=== PATIENT | female | born 1965 | race Caucasian/White ===

== ENCOUNTER 2023-11-01 19:12 | Emergency (ER) | payer OTHER, SELFPAY ==
[2023-11-01 19:16] VITALS: BP 178/78; PULSE 98; RESP 18; TEMP 37.2; O2SAT 98
[2023-11-01 20:00] LABS: Abs Immature Grans 0.02 10^3/uL (0.0-0.06); Absolute Basophil Count 0.04 10^3/uL (0.0-0.2); Absolute Eosinophil Count 0.21 10^3/uL (0.0-0.7); Absolute Lymphocyte Count 2.37 10^3/uL (1.2-3.4); Absolute Monocyte Count 0.38 10^3/uL (0.1-0.8); Basophils % 0.5 %; Eosinophils % 2.6 %; HCT 41.4 % (36.0-46.0); HGB 14.2 g/dL (11.2-15.7); Immature Grans % 0.2 %; Lymphocytes % 29.2 %; MCH 32.3 pg (27.0-33.0); MCHC 34.3 % (32.0-36.0); MCV 94 fL (80-95); MPV 10.8 fL (8.0-11.0); Monocytes % 4.7 %; Neutrophils % 62.8 %; Platelet Count 240 10^3/uL (130-400); RDW-SD 44.7 fL; WBC 8.12 10^3/uL (4.4-10.8)
[2023-11-01 20:13] LABS: ALT 36 U/L (14-59); AST 20 U/L (15-37); Albumin 4.3 g/dL (3.4-5.0); Alkaline Phosphatase 62 U/L (46-116); Anion Gap 12.5 mmol/L (3-11); BUN 12 mg/dL (7-18); Bilirubin, Total 0.5 mg/dL (0.2-1.0); CO2 26.5 mmol/L (21.0-32.0); CREATININE 1.3 mg/dL (0.55-1.02); Calcium 9.1 mg/dL (8.5-10.1); Chloride 101 mmol/L (98-107); Estimated GFR 47.37 (mL/min/1.73m2); Glucose 116 mg/dL (74-106); Potassium 3.9 mmol/L (3.5-5.1); Sodium 140 mmol/L (136-145)
--- NOTE | 2023-11-01 20:22 | ED.GENADUL_ITS ---
Discharge Plan Disposition Patient Disposition: Home Condition: Stable Discharge Details Clinical Impression: Tick bite Primary Care Provider: [facility] Provider: Adrianna Gavin Home Meds and New Rx's Prescriptions: New cefuroxime axetil 500 mg tablet 500 mg PO BID 14 Days Qty: 28 0RF Rx Instructions: Take one tablet twice daily x 14 days No Action amlodipine 5 mg tablet 5 mg PO DAILY duloxetine [Cymbalta] 60 mg capsule,delayed release(DR/EC) 60 mg PO DAILY rosuvastatin [Crestor] 20 mg tablet 20 mg PO DAILY Discharge Instructions Instructions: Tick Bite (ED) Additional Instructions: We will call you with the Tick and Lyme panel results which are a send out and should be resulted in 2-3 days. Take the antibiotic as directed. Elevate your legs and apply ice at least 3 times daily. You may consider wearing compression socks. The D-dimer was negative, CBC was within normal limits. Follow up with primary care provider in 3-5 days. Return to ED sooner if any worsening or concerns. Stand Alone Forms: Work Release Discharge Data Discharge Date/Time-TO BE ENTERED AT DEPARTURE: 11/01/23 21:23 HPI General Mode of arrival: ambulatory . Date/Time Provider Initiated Documentation: 11/01/23 19:36 . Limitations to Documentation: no limitations . Information obtained by: patient, RN notes reviewed and old records reviewed . HPI Narrative: 57-year-old female presents to the ER after having a tick bite on Monday to her right hip which her removed it he did remove it and completely was seen in urgent care on Monday and was given 200 mg of doxycycline. Was told to be seen again if she got a rash. She then noted some tightness around her ankles and rash and swelling to her bilateral ankles and some achiness in her knees. She also is complaining of some lower back pain. She also did have bladder surgery approximately 3 weeks ago. 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 Denies any chest pain. She does report some dyspnea. Related Data Home Medications Medication Instructions Recorded Confirmed amlodipine 5 mg tablet 5 mg PO DAILY 11/01/23 11/01/23 cefuroxime axetil 500 mg tablet 500 mg PO BID tick bite 14 days 11/01/23 #28 tabs duloxetine 60 mg capsule,delayed 60 mg PO DAILY 11/01/23 11/01/23 release (Cymbalta) rosuvastatin 20 mg tablet (Crestor) 20 mg PO DAILY 11/01/23 11/01/23 Previous Rx's Medication Instructions Recorded cefuroxime axetil 500 mg tablet 500 mg PO BID tick bite 14 days 11/01/23 #28 tabs Allergies Allergy/AdvReac Type Severity Reaction Status Date / Time egg Allergy Intermediate rash Unverified 11/01/23 19:21 yellow dye Allergy Mild Hives Unverified 11/01/23 19:21 General Stated Complaint: RashLesion MOOK: 4 Review of Systems All systems reviewed & are unremarkable except as noted in HPI and below Constitutional Constitutional: Reports as per HPI, Reports body ache(s) and Denies snoring Cardiovascular Cardiovascular: Denies chest pain and Reports dyspnea Respiratory Respiratory: Reports dyspnea, Denies snoring, Denies stridor and Denies wheezing Musculoskeletal Musculoskeletal: Reports arthralgias (knees) Comments: Generalized lower extremity swelling Integumentary/Breasts Skin/Breast: Reports rash Allergic/Immunologic Allergic/Immunologic: Denies wheezing Exam Narrative Exam Narrative: Constitutional: Alert and oriented x3. Appears stated age. Normal body habitus. Head: Normocephalic, no trauma. Eyes: Pupils PERRL, Red reflex noted, EOM's intact. Eyelids symmetrical without lesions, discharge, or swelling. ENT: Bilateral TM's WNL, External ear normal to inspection, no mastoid TTP, swelling, or erythema, Nasal turbinates WNL, no nasal discharge. Normal dentition, Posterior pharynx WNL, no exudate. Chest: RRR, Normal S1, S2, distal pulses intact. Resp: Lungs clear to auscultation bilaterally, no wheezes, rales, or rhonchi. Abdomen: Soft, non-distended, Normoactive bowel sounds all 4 quads. Musculoskeletal: Normal gait, Moves all 4 extremities without difficulty. Reports lower back pain did have bladder surgery recently. Skin: Tick bite noted to right hip, some lower extremity rash noted bilaterally with some surrounding edema. Neurologic: Cranial nerves II-XII intact. Alert and oriented x 3. Motor: No deficits noted. Sensory: Intact bilaterally all 4 extremities. Hematologic/Lymphatic: No ecchymosis, no lymphadenopathy. Skin General skin exam: other (Generalized edema noted to bilateral lower extremities ) Lesions: lesion noted (Right hip tick bite) Rashes: rashes noted (Bilateral lower extremities near ankles erythemic nonraised no urticaria ) Course Vital Signs Vital signs: Vital Signs Temperature 37.2 C 11/01/23 19:16 Pulse 98 H 11/01/23 19:16 Respiratory Rate 18 11/01/23 19:16 Blood Pressure 178/78 H 11/01/23 19:16 Pulse Oximetry 98 11/01/23 19:16 Temperature 37.2 C 11/01/23 19:16 Temperature Source Skin 11/01/23 19:16 Pulse 98 H 11/01/23 19:16 Respiratory Rate 18 11/01/23 19:16 Respiratory Effort Normal, Non-Labored 11/01/23 19:23 Blood Pressure 178/78 H 11/01/23 19:16 Blood Pressure Position Sitting 11/01/23 19:16 Pulse Oximetry 98 11/01/23 19:16 Oxygen Delivery Method Room Air 11/01/23 19:16 Oxygen Flow Rate 0 11/01/23 19:16 Lab/Test Results Lab/Test Results: Laboratory Tests Range/Units 11/01/23 19:50 WBC (4.4-10.8) 10^3/uL 8.12 RBC (3.93-5.22) 10^6/uL 4.40 Hgb (11.2-15.7) g/dL 14.2 Hct (36.0-46.0) % 41.4 MCV (80-95) fL 94 MCH (27.0-33.0) pg 32.3 MCHC (32.0-36.0) % 34.3 RDW (11.7-14.6) % 13.0 Plt Count (130-400) 10^3/uL 240 MPV (8.0-11.0) fL 10.8 Immature Gran % % 0.2 Neutrophils % % 62.8 Lymphocytes % % 29.2 Monocytes % % 4.7 Eosinophils % % 2.6 Basophils % % 0.5 Nucleated RBC % (0.0-0.3) % 0.0 Absolute Neutrophils (1.2-6.7) 10^3/uL 5.10 Absolute Lymphocytes (1.2-3.4) 10^3/uL 2.37 Absolute Monocytes (0.1-0.8) 10^3/uL 0.38 Absolute Eosinophils (0.0-0.7) 10^3/uL 0.21 Absolute Basophils (0.0-0.2) 10^3/uL 0.04 Sodium (136-145) mmol/L 140 Potassium (3.5-5.1) mmol/L 3.9 Chloride (98-107) mmol/L 101 Carbon Dioxide (21.0-32.0) mmol/L 26.5 Anion Gap (3-11) mmol/L 12.5 H BUN (7-18) mg/dL 12 Creatinine (0.55-1.02) mg/dL 1.3 H Est GFR (CKD-EPI 2020) (mL/min/1.73m2) 47.37 Glucose (74-106) mg/dL 116 H Calcium (8.5-10.1) mg/dL 9.1 Total Bilirubin (0.2-1.0) mg/dL 0.5 AST (15-37) U/L 20 ALT (14-59) U/L 36 Alkaline Phosphatase (46-116) U/L 62 Total Protein (6.4-8.2) g/dL 8.0 Albumin (3.4-5.0) g/dL 4.3 Medical Decision Making 57-year-old female presents to the ER after having a tick bite on Monday to her right hip which her removed it he did remove it and completely was seen in urgent care on Monday and was given 200 mg of doxycycline. Was told to be seen again if she got a rash. She then noted some tightness around her ankles and rash and swelling to her bilateral ankles and some achiness in her knees. She also is complaining of some lower back pain. She also did have bladder surgery approximately 3 weeks ago. 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 Denies any chest pain. She does report some dyspnea. Labs show no leukocytosis, platelets are within normal limits, no anaplasmosis, anion gap 12.5 creatinine 1.3 glucose 116 GFR is 47 tick and Lyme panel ordered. I also did add on a D-dimer. Will consider post surgical swelling, Lyme disease or PE from previous surgery. D-dimer within normal limits no leukocytosis, labs largely within normal limits. Lyme panel is pending at this time. Patient discharged with prescription for cefuroxime since patient is allergic to doxycycline. Encouraged close follow-up with her PCP she verbalized understanding. Medical Records Medical records narrative: Laboratory Tests Range/Units 11/01/23 11/01/23 11/01/23 19:50 20:19 20:30 WBC (4.4-10.8) 10^3/uL 8.12 RBC (3.93-5.22) 10^6/uL 4.40 Hgb (11.2-15.7) g/dL 14.2 Hct (36.0-46.0) % 41.4 MCV (80-95) fL 94 MCH (27.0-33.0) pg 32.3 MCHC (32.0-36.0) % 34.3 RDW (11.7-14.6) % 13.0 Plt Count (130-400) 10^3/uL 240 MPV (8.0-11.0) fL 10.8 Immature Gran % % 0.2 Neutrophils % % 62.8 Lymphocytes % % 29.2 Monocytes % % 4.7 Eosinophils % % 2.6 Basophils % % 0.5 Nucleated RBC % (0.0-0.3) % 0.0 Absolute Neutrophils (1.2-6.7) 10^3/uL 5.10 Absolute Lymphocytes (1.2-3.4) 10^3/uL 2.37 Absolute Monocytes (0.1-0.8) 10^3/uL 0.38 Absolute Eosinophils (0.0-0.7) 10^3/uL 0.21 Absolute Basophils (0.0-0.2) 10^3/uL 0.04 D-Dimer (<500) ng/mlFEU 397 Sodium (136-145) mmol/L 140 Potassium (3.5-5.1) mmol/L 3.9 Chloride (98-107) mmol/L 101 Carbon Dioxide (21.0-32.0) mmol/L 26.5 Anion Gap (3-11) mmol/L 12.5 H BUN (7-18) mg/dL 12 Creatinine (0.55-1.02) mg/dL 1.3 H Est GFR (CKD-EPI 2020) (mL/min/1.73m2) 47.37 Glucose (74-106) mg/dL 116 H Calcium (8.5-10.1) mg/dL 9.1 Total Bilirubin (0.2-1.0) mg/dL 0.5 AST (15-37) U/L 20 ALT (14-59) U/L 36 Alkaline Phosphatase (46-116) U/L 62 Total Protein (6.4-8.2) g/dL 8.0 Albumin (3.4-5.0) g/dL 4.3 Lyme Disease Antibody (Negative) Negative Add-On Test Request DONE Lab Data Lab results reviewed: Yes I reviewed the patient's lab results. Labs: Laboratory Tests Range/Units 11/01/23 11/01/23 11/01/23 19:50 20:19 20:30 WBC (4.4-10.8) 10^3/uL 8.12 RBC (3.93-5.22) 10^6/uL 4.40 Hgb (11.2-15.7) g/dL 14.2 Hct (36.0-46.0) % 41.4 MCV (80-95) fL 94 MCH (27.0-33.0) pg 32.3 MCHC (32.0-36.0) % 34.3 RDW (11.7-14.6) % 13.0 Plt Count (130-400) 10^3/uL 240 MPV (8.0-11.0) fL 10.8 Immature Gran % % 0.2 Neutrophils % % 62.8 Lymphocytes % % 29.2 Monocytes % % 4.7 Eosinophils % % 2.6 Basophils % % 0.5 Nucleated RBC % (0.0-0.3) % 0.0 Absolute Neutrophils (1.2-6.7) 10^3/uL 5.10 Absolute Lymphocytes (1.2-3.4) 10^3/uL 2.37 Absolute Monocytes (0.1-0.8) 10^3/uL 0.38 Absolute Eosinophils (0.0-0.7) 10^3/uL 0.21 Absolute Basophils (0.0-0.2) 10^3/uL 0.04 D-Dimer (<500) ng/mlFEU 397 Sodium (136-145) mmol/L 140 Potassium (3.5-5.1) mmol/L 3.9 Chloride (98-107) mmol/L 101 Carbon Dioxide (21.0-32.0) mmol/L 26.5 Anion Gap (3-11) mmol/L 12.5 H BUN (7-18) mg/dL 12 Creatinine (0.55-1.02) mg/dL 1.3 H Est GFR (CKD-EPI 2020) (mL/min/1.73m2) 47.37 Glucose (74-106) mg/dL 116 H Calcium (8.5-10.1) mg/dL 9.1 Total Bilirubin (0.2-1.0) mg/dL 0.5 AST (15-37) U/L 20 ALT (14-59) U/L 36 Alkaline Phosphatase (46-116) U/L 62 Total Protein (6.4-8.2) g/dL 8.0 Albumin (3.4-5.0) g/dL 4.3 Lyme Disease Antibody (Negative) Negative Add-On Test Request DONE Quality:SDOH Health Related Social Needs: No Data to Display PFSH All Active Problems (Updated 11/01/23 @ 21:07 by Adrianna Gavin NP) Tick bite (Acute) Social History Smoking/Tobacco Use Status: Former Tobacco Use Smoking risk assessment performed?: Yes Drug use: Never Substance use type: does not use Housing: house Do you feel safe at home: Yes Do you feel safe in your relationship?: Yes
[2023-11-01 20:30] LABS: Lab Add On Test DONE
[2023-11-01 21:05] LABS: D-Dimer 397 ng/mlFEU (<500)
[2023-11-01 21:18] VITALS: BP 152/99; PULSE 82; RESP 15; O2SAT 98
[2023-11-01] MEDS: Cefuroxime 500 MG TAB PO (21:18)
[2023-11-03 10:58] LABS: Lyme Ab w Rflx to Lyme Confirm Negative (Negative)
[2023-11-06 09:00] LABS: Anaplasma phagocytophilum Negative (Negative); B. miyamotoi PCR Negative (Negative); Babesia divergens/MO-1 Negative (Negative); Babesia duncani Negative (Negative); Babesia microti Negative (Negative); Ehrlichia chaffeensis Negative (Negative); Ehrlichia ewingii/canis Negative (Negative); Ehrlichia muris eauclairensis Negative (Negative)
--- NOTE | 2023-11-09 08:26 | NUR.NOTE ---
Patient called asking for the results of her lyme test. With Dr. Garg, the results were negative. Gave patient these results and to follow up with her PCP. Nursing Note:
== END 2023-11-01 21:23 | disposition home or self-care (01) ==
PROVIDERS: Emergency Provider Registered Nurse Emergency
DX: S70.261A Insect bite (nonvenomous), right hip, initial encounter (principal); R21 Rash and other nonspecific skin eruption; M54.50 Low back pain, unspecified; R22.43 Localized swelling, mass and lump, lower limb, bilateral; W57.XXXA Bitten or stung by nonvenomous insect and other nonvenomous arthropods, initial encounter
CPT/HCPCS: 80053; 87798; 99283; 85025; 85379; 86618